=== PATIENT | female | born 1955 | race Caucasian/White ===

== ENCOUNTER 2016-08-04 18:30 | Emergency (ER) | payer BC ==
[2016-08-04] MEDS: oxyCODONE/ACETAMINOPHEN 5/325 TABLET PO ONE (20:13)
[2016-08-04 20:53] VITALS: BP 115/80
--- NOTE | 2016-08-04 21:41 | Diagnostic Imaging Report ---
LILIA PÉREZ [facility] [address] [facility].[address] [address] Report Submission Date: August 04, 2016 8:16:26 PM CDT Patient Study Name: GLO LEACH Date: August 04, 2016 7:52:29 PM CDT Modality Type: CR Gender: F Description: SPINE : 59 Institution: [facility] Physician: LILIA PÉREZ Lumbar spine -three views CLINICAL HISTORY: Fall. FINDINGS: Examination of the lumbar spine in AP, lateral and lateral coned-down views demonstrates post vertebroplasty changes at L4. Vertebrae are anatomically aligned. Disc spaces are narrowed throughout the lumbar spine with anterior and lateral osteophytes at multiple levels consistent with degenerative disc disease. A spinal stimulator is seen with the battery pack on the left. The wires enter the spinal canal at the T12-L1 level with metallic markers at the T10-11 level. IMPRESSION: Diffuse spondylosis. Postop vertebroplasty at L4. No fracture. Electronically signed on August 04, 2016 8:16:26 PM CDT by: Sher CUELLAR
--- NOTE | 2016-08-04 21:41 | Diagnostic Imaging Report ---
LILIA PÉREZ [facility] [address] [facility].[address] [address] Report Submission Date: August 04, 2016 8:17:52 PM CDT Patient Study Name: GLO LEACH Date: August 04, 2016 7:50:38 PM CDT Modality Type: CR Gender: F Description: SPINE : 59 Institution: [facility] Physician: LILIA PÉREZ Thoracic spine -three views CLINICAL HISTORY: Fall. Evaluate spinal stimulator. FINDINGS: Examination of the thoracic spine in AP, lateral and lateral swimmer's views demonstrates spinal stimulator wires with 1 demonstrating metallic markers at the T10-11 level and the second extending from the inferior aspect of T6 to the T7-8 disc space. The alignment of the vertebrae is anatomic. Pedicles are intact and the paravertebral soft tissues are within normal limits. There is no evident fracture. IMPRESSION: Spinal stimulators. No fracture. Electronically signed on August 04, 2016 8:17:52 PM CDT by: Sher CUELLAR
--- NOTE | 2016-08-05 12:15 | ED Physician Documentation ---
Fall - HISTORIAN Historian: patient - HPI Stated Complaint: fall/pain Chief Complaint: Fall Additional Information: fell on left hip/gluteal area, has a spinal stimulator, worried about lead damage Onset: just prior to arrival Where: home Context: tripped r: moderate Associated Symptoms:: no loss of consciousness Location of Pain/Injury: lower back, hip Injury to Right Extremity: none Injury to Left Extremity: none Further Comments: no - ROS CONST: no problems NEURO: denies: dizziness, anxiety, depression MS/SKIN/LYMPH: other (hx of back problems) EYES/ENT: none CVS/RESP: none GI/: denies: problems urinating, nausea, vomiting - PAST HX Past History: none Immunizations: referred to PCP Allergies/Adverse Reactions: Allergies Allergy/AdvReac Type Severity Reaction Status Date / Time No Known Allergies Allergy Verified 08/04/16 18:49 Home Medications: Ambulatory Orders Medication Instructions Recorded Alprazolam [Xanax] 0.5 mg PO Q4 08/04/16 Bupropion HCl [Wellbutrin Xl] 300 mg PO 08/04/16 Dextroamphetamine/Amphetamine 20 mg PO 08/04/16 [Adderall 20 mg Tablet] Lisinopril/Hydrochlorothiazide 1 each PO 08/04/16 [Zestoretic] amLODIPine BESYLATE [Norvasc] 08/04/16 - SOCIAL HX Smoking History: cigarettes Alcohol Use: none Drug Use: none - FAMILY HX Family History: no significant history - VITAL SIGNS Vital Signs: Vital Signs Temp Pulse Resp BP Pulse Ox 98.5 F 72 18 115/80 97 08/04/16 20:51 08/04/16 20:51 08/04/16 20:51 08/04/16 20:51 08/04/16 20:51 - REVIEWED ASSESSMENTS Nursing Assessment Reviewed: Yes Vitals Reviewed: Yes Progress - Results/Orders Results/Orders: x-ray lumbar and thoracic spine neg for fx or disruption of stimultor - Progress Progress: pt. improved after 2 percocet 5/325 Critical Care Note - Critical Care Note Total Time (mins): 0 ED Results Lab/Radiology - Lab Results Lab Results: none - Radiology Radiology Impressions: x-rays neg for fx or disruption of stimulator - Orders Orders: ED Orders Category Date Time Status L SPINE 2 OR 3 VIEWS [RAD] Stat Exams 08/04/16 Completed T SPINE 3 VIEWS [RAD] Stat Exams 08/04/16 Completed oxyCODONE HCL/ACETAMINOPHEN [Percocet 5-325 mg Tablet] Med 08/04/16 19:43 Discontinued 2 each PO NOW ONE Fall Physical Exam - Physical Exam General Appearance: moderate distress Head: non-tender, no swelling, no obvious injury. No: raccoon eyes, Colmenares's sign, trauma Neck: non-tender, painless ROM, trachea midline Eye: TRUNG, EOMI, lids & conjunct. nml ENT: nml external inspection, no dental injury, no oral injury, airway nml Resp/CVS: chest non-tender, no ecchymosis, breath sounds nml, no resp. 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 and receiving operator nml, reflexes nml, shipping and receiving operator symmetrical Skin: color nml, no rash Back: normal inspection, no CVA tenderness, no vertebral tenderness Extremities: pelvis stable, other (tender left hip, no dfeformity) Joint: joints nml - Anthony Coma Score Eyes Open: Spontaneous Speech: Oriented Motor: Obeys Commands Discharge Clincal Impression: Lumbar strain Qualifiers: Encounter type: initial encounter Qualified Code(s): S39.012A - Strain of muscle, fascia and tendon of lower back, initial encounter Referrals: Jaime Veronica MD [Primary Care Provider] - 2 Days Home Medications: Ambulatory Orders Alprazolam [Xanax] 0.5 mg PO Q4 08/04/16 Bupropion HCl [Wellbutrin Xl] 300 mg PO 08/04/16 Dextroamphetamine/Amphetamine [Adderall 20 mg Tablet] 20 mg PO 08/04/16 Lisinopril/Hydrochlorothiazide [Zestoretic] 1 each PO 08/04/16 amLODIPine BESYLATE [Norvasc] 08/04/16 Comments: pt. discharged with script for percocet Condition: Stable Disposition: 01 HOME, SELF-CARE Decision to Admit: NO Decision Time: 20:45
== END 2016-08-04 20:30 | disposition home or self-care (01) ==
LOC: ED 18:30
DX: S39.012A Strain of muscle, fascia and tendon of lower back, initial encounter (principal); X58.XXXA Exposure to other specified factors, initial encounter; Y93.9 Activity, unspecified; Y99.9 Unspecified external cause status
CPT/HCPCS: 72072; 72100; A9270; 99283

== ENCOUNTER 2017-05-11 11:40 | Emergency (ER) | payer BC, OTHER ==
[2017-05-11 12:01] VITALS: BP 157/93
--- NOTE | 2017-05-11 12:46 | ED Physician Documentation ---
Low Back Pain - HISTORIAN Historian: patient - HPI Stated Complaint: Back Pain Chief Complaint: Low Back Pain/ Injury History: back pain Onset: days ago Further Comments: yes (62 year old female patient presents with complaint of "left SI". Patient states she fell at work at [employer] in [place] on Monday, reports being seen at [place] [facility] - states she was given a dilaudid shot and sent home with 8 percocets. Patient reports she tried to make an appointment with her PCP - Dr Sorto in [place], was told he would not take worker's comp. Patient presents to Er with complaint of pain in left lower back radiating down left leg.) - ROS CONST: recent illness (fall on Monday) CVS/RESP: none EYES/ENT: none MS/SKIN/LYMPH: none, leg pain (left), back pain Neuro/Psych: none GI/: denies: abdominal pain, black stools - PAST HX Past History: arthritis, back injury, back pain, sciatica Other History: other (anxiety, nerve stimulator ) Allergies/Adverse Reactions: Allergies Allergy/AdvReac Type Severity Reaction Status Date / Time No Known Allergies Allergy Verified 05/11/17 12:01 Home Medications: Ambulatory Orders Medication Instructions Recorded Alprazolam [Xanax] 0.5 mg PO Q4 08/04/16 Dextroamphetamine/Amphetamine 20 mg PO DAILY 08/04/16 [Adderall 20 mg Tablet] Lisinopril/Hydrochlorothiazide 1 each PO DAILY 08/04/16 [Zestoretic] amLODIPine BESYLATE [Norvasc] 5 mg PO DAILY 08/04/16 - SOCIAL HX Smoking History: cigarettes - FAMILY HX Family History: denies: none - VITAL SIGNS Vital Signs: Vital Signs Temp Pulse Resp BP Pulse Ox 98.1 F 91 H 18 157/93 96 05/11/17 12:50 05/11/17 12:50 05/11/17 12:50 05/11/17 12:50 05/11/17 12:50 - REVIEWED ASSESSMENTS Nursing Assessment Reviewed: Yes Vitals Reviewed: Yes Low Back Pain/Injury - Physical Exam General Appearance: no acute distress, alert EENT: eye inspection normal, TRUNG Resp/CVS: chest non-tender, breath sounds nml, heart sounds nml, no resp. distress, lungs clear, reg. rate & rhythm Back: painless ROM, other (lumbar back brace in place. C/O discomfort with palpation of left paraspinous lumbar muscles. Walks without limp or grimace, able to reposition herself in chair - no grimace) Neuro/Psych: oriented x3, motor nml, sensation nml, bilat. doriflexion nml, reflexes nml, mood/affect nml Skin: normal color, warm/dry, NR, INT, PAL, DR Extremities: non-tender, normal range of motion, no evidence of injury, no edema , J, ETL LEAD Discharge Clincal Impression: Sciatica Qualifiers: Laterality: left Qualified Code(s): M54.32 - Sciatica, left side Referrals: Jaime Veronica MD [Primary Care Provider] - 2 Days Additional Instructions: Rest Call your worker's [employer] company to arrange follow up care. 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 Condition: Stable Disposition: 01 HOME, SELF-CARE Decision to Admit: NO Decision Time: 12:46
== END 2017-05-11 12:50 | disposition home or self-care (01) ==
LOC: ED 11:40
DX: M54.32 Sciatica, left side (principal)
CPT/HCPCS: 99282; 99283